=== PATIENT | male | born 1970 | race African-American/Black ===

== ENCOUNTER 2021-05-03 13:29 | Emergency (ER) | payer BC, OTHER ==
[~2021-05-03] VITALS: Ht 170.2 cm; Wt 83.9 kg
[~2021-05-03 13:29] MED LIST: ERYTHROMYCIN E3.5 G1 OPHTHALMIC
[2021-05-03 13:52] VITALS: BP 143/93
[2021-05-03] MEDS ORDERED: OXYBUTYNIN CHLO10 MG PO (13:54)
[2021-05-03] MEDS ORDERED: ATORVASTATIN CA20 MG PO (13:54)
[2021-05-03] MEDS ORDERED: TESSALON PERLE100 MG PO (14:38)
== END 2021-05-03 14:41 | disposition home or self-care (01) ==
LOC: ER 13:29
PROVIDERS: Emergency Medicine
DX: M79.10 Myalgia, unspecified site (principal); R05 Cough; R50.9 Fever, unspecified; Z20.822 Contact with and (suspected) exposure to COVID-19; Z79.899 Other long term (current) drug therapy; Z90.89 Acquired absence of other organs